=== PATIENT | male | born 1955 | race Caucasian/White ===

== ENCOUNTER 2024-02-15 13:40 | Outpatient (AMB) | payer OTHER, MEDICAID, SELFPAY ==
[2024-02-15 14:34] VITALS: BMI 27.0
--- NOTE | 2024-02-15 14:34 | A.SPINEOV_ITS ---
Vital Signs 02/15/24 14:34 Height 5 ft 6 in Weight 167 lb BMI 27.0 Intake Visit Reasons: Back pain trouble walking Intake Note: Mr. Astorga is here today c/o bilateral leg pain and difficulty walking [employer] Required: No Physical Exam Vital Signs: BMI result Body Mass Index 27.0 Assessment & Plan Assessment & Plan (1) Proximal leg weakness: Code(s): R29.898 - Other symptoms and signs involving the musculoskeletal system Category: Medical Plan Dear colleague Thank you for referring Casper Astorga to the office today with a chief complaint of bilateral leg weakness. HPI: This 68-year-old gentleman comes into see me with a chief complaint of proximal leg weakness. He states that his legs feel like spaghetti. He has fallen 6-8 times. He also noticed that his right foot can be dragging when he walks. He denies upper extremity symptoms. His medical history shows vascular insufficiency for which bypass surgeries in his legs and a lumbar decompression by myself in 2007. On further questioning, he mentions diagnosis of cervical myelitis in the past. Physical Exam: Pleasant male. He has mild proximal leg weakness. He walks unsteady. No pathological reflexes. Radiological Studies: MRI of the cervical and lumbar spine done at [facility] shows white matter changes behind the body of C3 and behind C5-C6. No spinal cord compression. The lumbar MRI shows severe lumbar degenerative disc disease L4-5 and L5-S1 without significant central spinal stenosis or foraminal stenosis. Impression/Plan: The weakness of his proximal legs is most likely caused by the white matter changes in the cervical spinal cord. I would recommend an MRI of the brain to see if there are plaques which would make a diagnosis of multiple sclerosis. He already has an appointment with a neurologist and he will relay the recommendation. There is no surgical cause for his symptoms. Thank you for allowing me to participate in your patients care. total time spent was 50 minutes in counseling ,coordination of plan, personal review of imaging, surgical decision making and subsequent plan Walter High MD, PhD [facility] Trained Neurosurgeon Director, [facility] Coding Level of Care Code New Pt Level 4 (08117) Diagnoses Proximal leg weakness R29.898
== END 2024-02-15 15:29 | disposition home or self-care (01) ==
LOC: HO.HNS 13:41
PROVIDERS: Visit Provider Neurological Surgery
DX: R29.898 Other symptoms and signs involving the musculoskeletal system (principal)
CPT/HCPCS: 99204

== ENCOUNTER → 2024-02-15 13:40 | Outpatient (BNVA) | payer OTHER, MEDICAID, SELFPAY | PROVIDERS: Visit Provider Neurological Surgery ==